=== PATIENT | male | born 1970 | race Caucasian/White ===

== ENCOUNTER → 2020-12-18 | Outpatient (CLI) | payer OTHER ==
--- NOTE | 2020-12-18 09:08 | KCIC ---
EXAM: CT CORONARY CALCIUM SCORING. HISTORY: Cardiovascular screening. Hyperlipidemia. COMPARISON: None. FINDINGS: Limited noncontrast CT of the chest was performed for coronary calcium scoring. Refer to e worksheets for full detail Coronary calcium scoring is as follows: RCA: 0. LM: 0. LAD: 0. LCx: 0. Total: 0. No plaque is present. Less than 5 percent chance of having her disease. Risk of heart megha ck is very low. The included portions of the chest reveal the following. Bone windows reveal no suspicious lesions. I mages of the upper abdomen reveal no acute abnormality. Incidental benign left hepatic lobe cyst. There are no pathologically enlarged mediastinal lymph nodes. There is no pleural or pericardial effu christel. The heart is not enlarged. No airspace disease. IMPRESSION: 1. Coronary calcium score 0. No plaque is present. You have less than 5 percent chance of having hear t disease. Your risk of heart sac is very low. --- Exposure: One or more of the following individualized dose reduction techniques were utilized for thi s examination: 1. Automated exposure control 2. Adjustment of the mA and/or kV according to patient size 3. Use of iterative reconstruction technique. Electronically signed by: Ko Salcido MD (12/18/2020 9:06 AM) [facility]
== END ==
LOC: KCIC CT 08:08
PROVIDERS: ATTEND Family Medicine
DX: Z13.220 Encounter for screening for lipoid disorders (principal); I21.9 Acute myocardial infarction, unspecified
CPT/HCPCS: 75571